=== PATIENT | female | born 1970 | race Caucasian/White ===

== ENCOUNTER 2021-04-26 04:32 | Day surgery (SDC) | payer OTHER ==
[2021-04-24 13:47] VITALS: BMI 20.2
[2021-04-26] MEDS ORDERED: MIDAZOLAM HCL 2 MG/2 ML SINGLE DOSE VIAL ONE (08:34)
[2021-04-26] MEDS ORDERED: PROPOFOL 20 ML ONE (08:35)
[2021-04-26] MEDS ORDERED: BUPIVACAINE HCL/PF 0.5% (5MG/ML) 10 ML VIAL IJ ONE (08:42)
[2021-04-26] MEDS ORDERED: DEXAMETHASONE SOD PHOSPHATE 4 MG/1 ML VIAL ONE (08:45)
[2021-04-26] MEDS ORDERED: oxyCODONE HCL 5 MG TABLET PO PRN (09:02)
[2021-04-26] MEDS ORDERED: ONDANSETRON 4 MG/2 ML VIAL IVPUSH PRN (09:02)
[2021-04-26] MEDS ORDERED: LACTATED RINGERS SOLUTION 1,000 ML IV SCH (09:15)
[2021-04-26] MEDS ORDERED: KETOROLAC TROMETHAMINE 30 MG/1 ML VIAL ONE (09:22)
[2021-04-26 11:40] VITALS: BP 118/70; PULSE 70; TEMP 98
== END 2021-04-26 11:35 | disposition home or self-care (01) ==
LOC: JASU-SURG 04:32
PROVIDERS: ATTEND Podiatrist Foot Surgery
PROC: 0LBW0ZZ Excision of Left Foot Tendon, Open Approach (ICD-10-PCS; principal; 2021-04-26 09:00)
DX: M67.472 Ganglion, left ankle and foot (principal)
CPT/HCPCS: 88304-TC